=== PATIENT | female | born 1990 | race Caucasian/White ===

== ENCOUNTER 2016-09-16 17:27 | Emergency (ER) | payer BC, OTHER ==
[~2016-09-16] VITALS: Ht 154.9 cm; Wt 82.0 kg
[~2016-09-16 17:27] MED LIST: ALBUAER3 INH; AZIT500T2 PO; BENZ100 PO; PRED20 PO; SERO100T PO
[2016-09-16 17:31] VITALS: BP 138/104; PULSE 99; RESP 16; TEMP 98.3; O2SAT 99
[2016-09-16] MEDS ORDERED: SODIUM CHLORIDE 0.9% FLUSH 10 ML FLUSH IVF PRN (18:00)
--- NOTE | 2016-09-16 18:00 | PD ---
HPI Chief Complaint: Related Problem Time Seen by Provider: 17:40 Travel History International Travel<30 days: No Contact w/Intl Traveler<30days: No Traveled to known affect area: No History of Present Illness HPI Patient is a 26-year-old female who presents to emergency room with concerns for a possible miscarriage. Patient reports that she is around 5 weeks by date with her first , reports that she noticed some pink spotting this morning. Reports that an hour prior to coming to the ER, she noticed bright red spotting. Reports that she has had increased cramping and pain to her lower abdomen. She did call the health clinic and was told to go to the ER for evaluation. Patient has not followed up with an gas treater yet as she just got approved for medicare PFSH Past Medical History Hx Anticoagulant Therapy: No Asthma: Yes Bipolar Disorder: Yes Anxiety: Yes Depression: Yes Cardiovascular Problems: No Chemotherapy: No Cerebrovascular Accident: No Diabetes: No Diminished Hearing: No Respiratory: Yes (ASTHMA) Immunizations Current: Yes ?: Past Surgical History Hysterectomy: No Oral Surgery: Yes (wisdom teeth) Tonsillectomy: Yes Other Surgery: Yes (SINUS SURGERY, WISDOM TEETH REMOVED) Social History Alcohol Use: No Tobacco Use: Yes (1 PACK/WEEK) Substance Use: No Allergies-Medications (Allergen,Severity, Reaction): Coded Allergies: Sulfa (Unverified Allergy, Intermediate, HIVES, 09/16/16) Reported Meds & Prescriptions Reported Meds & Active Scripts Active Proair Hfa 8.5 GM Inh (Albuterol Sulfate) 90 Mcg/Act Aer 2 Puff INH Q4-6H PRN 108 mcg/actuation Review of Systems General / Constitutional: No: Fever Eyes: No: Visual changes HENT: No: Headaches Cardiovascular: No: Chest Pain or Discomfort Respiratory: No: Shortness of Breath Gastrointestinal: No: Abdominal Pain Genitourinary: Positive: Pelvic Pain, Vaginal Bleeding, No: Dysuria Musculoskeletal: No: Pain Skin: No Rash Neurologic: No: Weakness Psychiatric: No: Depression Endocrine: No: Polydipsia Hematologic/Lymphatic: No: Easy Bruising Physical Exam Narrative GENERAL: Mild distress SKIN: Focused skin assessment warm/dry. HEAD: Atraumatic. Normocephalic. EYES: Pupils equal and round. No scleral icterus. No injection or drainage. ENT: No nasal bleeding or discharge. Mucous membranes pink and moist. NECK: Trachea midline. No JVD. CARDIOVASCULAR: Regular rate and rhythm. No murmur appreciated. RESPIRATORY: No accessory muscle use. Clear to auscultation. Breath sounds equal bilaterally. GASTROINTESTINAL: Abdomen soft, non-tender, nondistended. Hepatic and splenic margins not palpable. : Pelvic exam performed with RN at bedside, patient with closed cervical os, scant blood in vaginal vault MUSCULOSKELETAL: No obvious deformities. No clubbing. No cyanosis. No edema. NEUROLOGICAL: Awake and alert. No obvious cranial nerve deficits. Motor grossly within normal limits. Normal speech. PSYCHIATRIC: Appropriate mood and affect; insight and judgment normal. Data Data Last Documented VS Vital Signs Date Time Temp Pulse Resp B/P Pulse Ox O2 Delivery O2 Flow Rate FiO2 09/16/16 17:53 16 09/16/16 17:31 98.3 99 138/104 99 Orders Beta Hcg (Quant/Titer) (09/16/16 17:49) Complete Blood Count With Diff (09/16/16 17:49) Basic Metabolic Panel (Bmp) (09/16/16 17:49) Gc And Chlamydia Pcr (09/16/16 17:49) Complete Rh (09/16/16 17:49) Type And Screen (09/16/16 17:49) Urinalysis - C+S If Indicated (09/16/16 17:49) Iv Access Insert/Monitor (09/16/16 17:49) Sodium Chloride 0.9% Flush (Ns Flush) (09/16/16 18:00) Ed Urine Pregnancytest Poc (09/16/16 17:49) Wet Prep Profile (09/16/16 18:12) Labs Laboratory Tests Test 09/16/16 09/16/16 18:10 18:15 Clue Cells (Wet Prep) NONE SEEN Vaginal Trichomonas (Wet Prep) NONE SEEN Vaginal Yeast (Wet Prep) NONE SEEN White Blood Count 11.4 TH/MM3 Red Blood Count 4.25 MIL/MM3 Hemoglobin 13.8 GM/DL Hematocrit 40.1 % Mean Corpuscular Volume 94.2 FL Mean Corpuscular Hemoglobin 32.5 PG Mean Corpuscular Hemoglobin 34.5 % Concent Red Cell Distribution Width 11.8 % Platelet Count 343 TH/MM3 Mean Platelet Volume 7.6 FL Neutrophils (%) (Auto) 63.6 % Lymphocytes (%) (Auto) 29.0 % Monocytes (%) (Auto) 6.1 % Eosinophils (%) (Auto) 0.6 % Basophils (%) (Auto) 0.7 % Neutrophils # (Auto) 7.2 TH/MM3 Lymphocytes # (Auto) 3.3 TH/MM3 Monocytes # (Auto) 0.7 TH/MM3 Eosinophils # (Auto) 0.1 TH/MM3 Basophils # (Auto) 0.1 TH/MM3 CBC Comment DIFF FINAL Differential Comment Urine Color YELLOW Urine Turbidity CLEAR Urine pH 6.0 Urine Specific [place] 1.030 Urine Protein TRACE mg/dL Urine Glucose (UA) NEG mg/dL Urine Ketones TRACE mg/dL Urine Occult Blood LARGE Urine Nitrite NEG Urine Bilirubin NEG Urine Leukocyte Esterase NEG Urine RBC 15-19 /hpf Urine WBC 6-8 /hpf Urine Squamous Epithelial 6-8 /hpf Cells Urine Mucus FEW /lpf Microscopic Urinalysis Comment CULT NOT INDICATED Sodium Level 140 MEQ/L Potassium Level 4.1 MEQ/L Chloride Level 106 MEQ/L Carbon Dioxide Level 25.4 MEQ/L Anion Gap 9 MEQ/L Blood Urea Nitrogen 9 MG/DL Creatinine 0.87 MG/DL Estimat Glomerular Filtration 78 ML/MIN Rate Random Glucose 98 MG/DL Calcium Level 8.6 MG/DL Human Chorionic Gonadotropin, 5 MIU/ML Quant MDM Medical Decision Making Medical Screen Exam Complete: Yes Emergency Medical Condition: Yes Interpretation(s) Vital Signs Date Time Temp Pulse Resp B/P Pulse Ox O2 Delivery O2 Flow Rate FiO2 09/16/16 17:31 98.3 99 16 138/104 99 Differential Diagnosis threatened miscarriage, ectopic , early Narrative Course 26-year-old female who presents to emergency room 5 weeks with complaining of possible miscarriage. Patient has been having abdominal cramping and pink spotting which now is bright red blood from her vagina. Reports that this is her first , no history of miscarriages or abortions in the past. Plan to obtain lab work including HCG quant as this number will need to be trended. Will perform pelvic exam. Pelvic US ordered to r/o ectopic Laboratory Tests Test 09/16/16 09/16/16 18:10 18:15 Clue Cells (Wet Prep) NONE SEEN (NONE) Vaginal Trichomonas (Wet Prep) NONE SEEN (NONE) Vaginal Yeast (Wet Prep) NONE SEEN (NONE) White Blood Count 11.4 TH/MM3 (4.0-11.0) Red Blood Count 4.25 MIL/MM3 (4.00-5.30) Hemoglobin 13.8 GM/DL (11.6-15.3) Hematocrit 40.1 % (35.0-46.0) Mean Corpuscular Volume 94.2 FL (80.0-100.0) Mean Corpuscular Hemoglobin 32.5 PG (27.0-34.0) Mean Corpuscular Hemoglobin 34.5 % Concent (32.0-36.0) Red Cell Distribution Width 11.8 % (11.6-17.2) Platelet Count 343 TH/MM3 (150-450) Mean Platelet Volume 7.6 FL (7.0-11.0) Neutrophils (%) (Auto) 63.6 % (16.0-70.0) Lymphocytes (%) (Auto) 29.0 % (9.0-44.0) Monocytes (%) (Auto) 6.1 % (0.0-8.0) Eosinophils (%) (Auto) 0.6 % (0.0-4.0) Basophils (%) (Auto) 0.7 % (0.0-2.0) Neutrophils # (Auto) 7.2 TH/MM3 (1.8-7.7) Lymphocytes # (Auto) 3.3 TH/MM3 (1.0-4.8) Monocytes # (Auto) 0.7 TH/MM3 (0-0.9) Eosinophils # (Auto) 0.1 TH/MM3 (0-0.4) Basophils # (Auto) 0.1 TH/MM3 (0-0.2) CBC Comment DIFF FINAL Differential Comment Urine Color YELLOW (YELLW/STRAW) Urine Turbidity CLEAR (CLEAR) Urine pH 6.0 (5.0-8.5) Urine Specific [place] 1.030 (1.002-1.035) Urine Protein TRACE mg/dL (NEG-TRACE) Urine Glucose (UA) NEG mg/dL (NEG) Urine Ketones TRACE mg/dL (NEG) Urine Occult Blood LARGE (NEG) Urine Nitrite NEG (NEG) Urine Bilirubin NEG (NEG) Urine Leukocyte Esterase NEG (NEG) Urine RBC 15-19 /hpf (0-3) Urine WBC 6-8 /hpf (0-5) Urine Squamous Epithelial 6-8 /hpf (0-5) Cells Urine Mucus FEW /lpf (OCC) Microscopic Urinalysis Comment CULT NOT INDICATED Sodium Level 140 MEQ/L (136-145) Potassium Level 4.1 MEQ/L (3.5-5.1) Chloride Level 106 MEQ/L (98-107) Carbon Dioxide Level 25.4 MEQ/L (21.0-32.0) Anion Gap 9 MEQ/L (5-15) Blood Urea Nitrogen 9 MG/DL (7-18) Creatinine 0.87 MG/DL (0.50-1.00) Estimat Glomerular Filtration 78 ML/MIN (>89) Rate Random Glucose 98 MG/DL (74-106) Calcium Level 8.6 MG/DL (8.5-10.1) Human Chorionic Gonadotropin, 5 MIU/ML (0-5) Quant HCG quant 5 which is essentially negative - patient most likely with either spontaneous miscarriage versus menstrual periods versus early . I suggest to patient to have a repeat hCG Quant in 48 hours, to confirm. She will return to ER as needed Diagnosis Primary Impression: Vaginal bleeding Patient Instructions: General Instructions Departure Forms: Tests/Procedures Additional Instructions: please follow up with your gas treater as soon as possible please have your hcg quant repeated in 48 hours as it was 5 today return to er if symptoms worsen or progress return to er as needed Disposition: 01 DISCHARGE HOME Condition: Stable Flakita Mayer DO Sep 16, 2016 18:00 Flakita Mayer DO Sep 16, 2016 18:00
[2016-09-16 18:25] LABS: AUTOMATED NEUTROPHIL # 7.2 TH/MM3 (1.8-7.7); BASOPHIL # 0.1 TH/MM3 (0-0.2); BASOPHIL % 0.7 % (0.0-2.0); EOSINOPHIL # 0.1 TH/MM3 (0-0.4); EOSINOPHIL % 0.6 % (0.0-4.0); HEMATOCRIT 40.1 % (35.0-46.0); HEMO FLAGS DIFF FINAL; LYMPHOCYTE # 3.3 TH/MM3 (1.0-4.8); MEAN CELL VOLUME 94.2 FL (80.0-100.0); MEAN CORPUSCULAR HEMOGLOBIN 32.5 PG (27.0-34.0); MEAN CORPUSCULAR HGB CONC 34.5 % (32.0-36.0); MONO % 6.1 % (0.0-8.0); NEUT % 63.6 % (16.0-70.0); PLATELET COUNT 343 TH/MM3 (150-450); RED BLOOD COUNT 4.25 MIL/MM3 (4.00-5.30); RED CELL DISTRIBUTION WIDTH 11.8 % (11.6-17.2); WHITE BLOOD COUNT 11.4 TH/MM3 (4.0-11.0)
[2016-09-16 18:28] LABS: BLOOD, URINE LARGE (NEG); GLUCOSE,URINE NEG (NEG); KETONE, URINE TRACE mg/dL (NEG); NITRITE,URINE NEG (NEG)
[2016-09-16 18:30] LABS: URINE COLOR YELLOW (YELLW/STRAW)
[2016-09-16 18:31] LABS: MUCUS URINE FEW /lpf (OCC)
[2016-09-16 18:32] LABS: POTASSIUM 4.1 MEQ/L (3.5-5.1); RBC, URINE 15-19 /hpf (0-3)
[2016-09-16 18:33] LABS: COMMENT (UR) CULT NOT INDICATED; CULTURE IF INDICATED CULT NOT INDICATED
[2016-09-16 18:36] LABS: BICARBONATE 25.4 MEQ/L (21.0-32.0)
[2016-09-16 19:23] VITALS: BP 140/83
[2016-09-16 23:42] LABS: CHLAMYDIA PCR NOT DETECTED (NOT DETECT); NEISSERIA PCR NOT DETECTED (NOT DETECT)
== END 2016-09-16 19:33 | disposition home or self-care (01) ==
LOC: PHED 17:27
DX: O20.9 Hemorrhage in early pregnancy, unspecified (principal); Z3A.01 Less than 8 weeks gestation of pregnancy
CPT/HCPCS: 80048; 81001; 84702; 84703; 85025; 86077; 86850; 86870; 86900; 86901; 86902; 87210; 87491; 87591; 99283

== ENCOUNTER 2017-09-26 17:01 | Emergency (ER) | payer BC, OTHER ==
[~2017-09-26 17:01] MED LIST changes: -AZIT500T2 PO; -BENZ100 PO; -PRED20 PO; -SERO100T PO
[2017-09-26 17:08] VITALS: BP 145/82; PULSE 91; RESP 20; TEMP 98.2; O2SAT 96
[2017-09-26 17:43] LABS: BILIRUBIN, URINE NEG (NEG); BLOOD, URINE NEG (NEG); GLUCOSE,URINE NEG (NEG); KETONE, URINE TRACE mg/dL (NEG); NITRITE,URINE NEG (NEG); URINE COLOR YELLOW (YELLW/STRAW); URINE LEUKOCYTE ESTERASE NEG (NEG)
[2017-09-26 17:53] LABS: MUCUS URINE MOD /lpf (OCC)
[2017-09-26 17:54] LABS: WBC, URINE 0-2 /hpf (0-5)
--- NOTE | 2017-09-26 17:54 | PD ---
HPI Chief Complaint: Open [employer] Worker Problem/Complaint Time Seen by Provider: 17:19 Travel History International Travel<30 days: No Contact w/Intl Traveler<30days: No Traveled to known affect area: No History of Present Illness HPI Is a 27-year-old woman who presents to the emergency department some , cramping, vaginal discharge. She states is about 9 weeks . She is 2 para 01 previous miscarriage very early . Last menstrual period was July 23. Patient had cramping for the past 2 months since she has been . She states she had sex about 5 days ago, after which she developed some light pink discharge with some pruritus and irritation. Some occasional dysuria. She states she is sexually active with only 1 partner but she is not sure if he is monogamous or not she has not seen an OB doctor yet. She denies any other medical problems. Review of systems positive for a small bump on her tongue that she had been worried about. 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 SKIN: Focused skin assessment warm/dry. HEAD: Atraumatic. Normocephalic. CARDIOVASCULAR: Regular rate and rhythm. No murmur appreciated. RESPIRATORY: No accessory muscle use. Clear to auscultation. Breath sounds equal bilaterally. GASTROINTESTINAL: Abdomen soft, non-tender, nondistended. Hepatic and splenic margins not palpable. MUSCULOSKELETAL: No obvious deformities. : Normal external female genitalia. Scant thin vaginal discharge. Cervix is normal in appearance. There is no purulent drainage. No bleeding. No friability noted. On exam she has minimal uterine tenderness. No adnexal masses or appreciable uterine enlargement. Data Data Last Documented VS Vital Signs Date Time Temp Pulse Resp B/P (MAP) Pulse Ox O2 Delivery O2 Flow Rate FiO2 09/26/17 17:08 98.2 91 20 145/82 (103) 96 Orders Orders Ed Poc Ultrasound (09/26/17 ) Urinalysis - C+S If Indicated (09/26/17 17:27) Gc And Chlamydia Pcr (09/26/17 17:27) Wet Prep Profile (09/26/17 17:27) Labs Laboratory Tests Test 09/26/17 17:30 09/26/17 17:50 Urine Collection Type CLEAN CATCH Urine Color YELLOW Urine Turbidity CLEAR Urine pH 7.0 Urine Specific [place] 1.020 Urine Protein NEG mg/dL Urine Glucose (UA) NEG mg/dL Urine Ketones TRACE mg/dL Urine Occult Blood NEG Urine Nitrite NEG Urine Bilirubin NEG Urine Urobilinogen 0.2 MG/DL Urine Leukocyte Esterase NEG Urine WBC 0-2 /hpf Urine Squamous Epithelial Cells 3-5 /hpf Urine Mucus MOD /lpf Microscopic Urinalysis Comment CULT NOT INDICATED Clue Cells (Wet Prep) NONE SEEN Vaginal Trichomonas (Wet Prep) NONE SEEN Vaginal Yeast (Wet Prep) NONE SEEN MDM Medical Decision Making Medical Screen Exam Complete: Yes Emergency Medical Condition: Yes Interpretation(s) UA negative Wet prep negative Differential Diagnosis Vaginitis, cervicitis, , UTI, other Narrative Course Medical decision making 19-year-old woman presents emerged from complaining of a little lower abdominal discomfort, thin discharge and pruritus, . Ultrasound confirms intrauterine . Will check UA, labs. Patient is a little bit worried about STD. I do not see any evidence of ST on exam. Will check wet prep, GC and chlamydia. Likely outpatient follow-up. Procedures Procedure Narrative [id number] ultrasound: Focused transabdominal ultrasound was performed at the bedside to evaluate for well-being. Rashid intrauterine identified. Measures about 10 weeks 1 day by crown-rump length. Heart rate in the 170s by M-mode. Diagnosis Primary Impression: Vaginal discharge Additional Impression: Additional Instructions: Follow-up with OB doctor to first available appointment. Return to the emergency room for any new or worsening symptoms. Med/Other Pt SpecificInfo: No Change to Meds Disposition: DISCHARGE HOME Condition: Stable Jv Humphries MD Sep 26, 2017 17:54
[2017-09-26 18:38] VITALS: BP 113/79
== END 2017-09-26 18:43 | disposition home or self-care (01) ==
LOC: PHED 17:01
DX: O26.891 Other specified pregnancy related conditions, first trimester (principal); N89.8 Other specified noninflammatory disorders of vagina; R10.9 Unspecified abdominal pain; R30.0 Dysuria; Z3A.09 9 weeks gestation of pregnancy
CPT/HCPCS: 81001; 87210; 87491; 87591